=== PATIENT | female | born 1965 | race Caucasian/White ===

== ENCOUNTER 2018-11-01 09:24 | Day surgery (SDC) | payer BC ==
[2018-10-28 09:09] VITALS: BMI 31.6
[2018-11-01] MEDS ORDERED: VASOPRESSIN 20 UNITS/ML VIAL IV ONE (10:38)
[2018-11-01] MEDS ORDERED: KETOROLAC TROMETHAMINE 30 MG/1 ML VIAL ONE (10:58)
[2018-11-01] MEDS ORDERED: PROPOFOL 20 ML ONE ×2 (10:58)
[2018-11-01] MEDS ORDERED: MIDAZOLAM HCL 2 MG/2 ML SINGLE DOSE VIAL ONE (10:58)
[2018-11-01] MEDS ORDERED: LIDOCAINE HCL/PF 2% SDV 5ML VIAL ONE (10:58)
[2018-11-01] MEDS ORDERED: DEXAMETHASONE SOD PHOSPHATE 4 MG/1 ML VIAL ONE (10:58)
[2018-11-01] MEDS ORDERED: ceFAZolin SODIUM 1 GM VIAL IVPB ONE (11:35)
[2018-11-01] MEDS ORDERED: LIDOCAINE HCL 1%, 10 MG/ML (20ML VIAL) ONE (11:37)
[2018-11-01] MEDS ORDERED: BUPIVACAINE HCL/PF 0.5% (5MG/ML) 10 ML VIAL ONE (11:37)
--- NOTE | 2018-11-01 12:24 | OP ---
Operative Note - Note: Operative Date: 11/01/18 Pre-Operative Diagnosis: Stress Incontinence Operation: Urethral sling placement Findings: Stress incontinence Post-Operative Diagnosis: Same as Pre-op Surgeon: Estiven Burnham MD. Anesthesia: General Estimated Blood Loss (mls): 10 Drains & Tubes with Location: Roberts to SD Operative Report Dictated: Yes
[2018-11-01] MEDS ORDERED: oxyCODONE HCL 5 MG TABLET PO PRN (12:27)
[2018-11-01] MEDS ORDERED: ONDANSETRON 4 MG/2 ML VIAL IVPUSH PRN (12:27)
[2018-11-01] MEDS ORDERED: PROMETHAZINE HCL 25 MG/1 ML VIAL IVPB PRN (12:27)
[2018-11-01] MEDS ORDERED: ELECTROLYTE-148 SOLN 1,000 ML IV SCH (12:30)
--- NOTE | 2018-11-01 13:16 | OP ---
DATE OF OPERATION: 11/01/2018 PREOPERATIVE DIAGNOSIS: Stress incontinence. POSTOPERATIVE DIAGNOSIS: Stress incontinence. PROCEDURE: Midurethral sling placement. HISTORY: This is a very pleasant 53-year-old female with noted increasing stress incontinence on relatively minimal activity. Preoperative bladder function study as an outpatient revealed leak point pressure approximately 60 mmHg. After discussing treatment options, the patient elected to undergo the above-stated procedure. Risks and benefits of treatment and alternative treatment discussed in detail. All questions were answered. DESCRIPTION OF PROCEDURE: The patient was brought into the operating room and placed in a supine position. Once general anesthesia was administered, intravenous antibiotics were given. The patient was transferred to the dorsal lithotomy position, prepped and draped in a standard sterile fashion. At this time, a Roberts was placed to suction drainage. Vaginal stay sutures were applied. At this point, an injectable of saline and Vasopressin was injected approximately 1 cm proximal to the meatus and approximately 3 cm in transverse fashion. The anterior vaginal wall was incised with a 15 blade. The periurethral tissue was dissected free from the anterior vaginal wall. At this time, a space was created in the pelvis, and the obturator foramen was identified. There was no evidence of active bleeding. The bladder was well away from the area of dissection. The Altis sling was placed in a standard fashion. A mild degree of tension was placed on the sling material. At this time, the anterior vaginal wall was then closed using a 3-0 running Vicryl suture. There was a minimal amount of bleeding. A Roberts catheter was left to straight drainage. A 2-inch iodoform-soaked vaginal packing was placed, and the patient was brought to the recovery room in stable and satisfactory condition. Lucio [id number]
[2018-11-01 14:42] VITALS: BP 116/68; PULSE 78; TEMP 97.6
== END 2018-11-01 14:15 | disposition home or self-care (01) ==
LOC: JASU-SURG 09:24
PROVIDERS: ATTEND Urology
PROC: 0TSD0ZZ Reposition Urethra, Open Approach (ICD-10-PCS; principal; 2018-11-01 11:00)
DX: N39.3 Stress incontinence (female) (male) (principal); I10 Essential (primary) hypertension; E11.9 Type 2 diabetes mellitus without complications; Z79.84 Long term (current) use of oral hypoglycemic drugs
CPT/HCPCS: 57288; C1771; 82962; 94760

== ENCOUNTER 2022-12-07 09:30 | Emergency (ER) | payer BC ==
[2022-12-07 09:48] VITALS: RESP 18; BMI 36.3
[2022-12-07] MEDS ORDERED: ALPRAZolam 0.25 MG TABLET PO ONE (10:34)
[2022-12-07] MEDS ORDERED: ALPRAZolam 0.25 MG TABLET ONE (10:41)
[2022-12-07 10:47] LABS: ALBUMIN 4.8 g/dl (3.4-5.0); BILIRUBIN,TOTAL 1.2 mg/dl (0.2-1); CALCIUM 10.6 mg/dl (8.5-10); CREATININE 0.7 mg/dl (0.55-1.3); MAGNESIUM 1.8 mg/dL (1.8-2.4); TOT PROT 8.2 g/dl (6.4-8.2)
[2022-12-07 10:48] LABS: HEMATOCRIT 41.7 % (32.4-45.2); HEMOGLOBIN 13.9 G/dL (10.7-15.3); MCH 27.3 pg (25.7-33.7); MCHC 33.4 g/dl (32.0-36.0); MEAN PLT VOLUME 7.8 fl (7.5-11.1); PLATELET COUNT 298.4 10^3/uL (134-434); RBC 5.09 10^6/uL (3.60-5.2); RDW 15.1 % (11.6-15.6); WHITE BLOOD COUNT 8.2 10^3/uL (4.0-10.8)
[2022-12-07 11:12] VITALS: BP 131/92; PULSE 110; TEMP 98.8
[2022-12-07 12:46] LABS: ADD RBC MORPHOLOGY YES; PLATELET ESTIMATE ADEQUATE
== END 2022-12-07 11:46 | disposition home or self-care (01) ==
LOC: FER 09:30
DX: R20.2 Paresthesia of skin (principal)
CPT/HCPCS: 36415; 70450-TC; 80053; 83735; 85025; 93005; 99285-25